=== PATIENT | female | born 1970 | race Hispanic/Latino ===

== ENCOUNTER 2020-08-15 13:40 | Emergency (ER) | payer BC ==
--- NOTE | 2020-08-15 16:02 | ER ---
Nurse's Notes [facility] Name: Angela Strong Age: 49 yrs Sex: Female : 1970 Arrival Date: 08/15/2020 Time: 13:41 Bed 23 Private MD: Diagnosis: Fall on same level from slipping, tripping and stumbling;Pain in right foot;Pain in right hip;Pain in right shoulder;Pain in right leg Presentation: 08/15 13:55 Chief complaint: Patient states: Fell 5 nights ago. Fell onto R side . R foot pain ll1 since. Wants R hip/R knee/R shoulder checked also. accidentally hit R toe 2 days ago, re-injured it. PMS intact. Coronavirus screen: Client denies travel out of the [place] in the last 14 days. At this time, the client does not indicate any symptoms associated with coronavirus-19. Ebola Screen: Patient denies travel to an Ebola-affected area in the 21 days before illness onset. Initial Sepsis Screen: Does the patient meet any 2 criteria? HR > 90 bpm. No. Patient's initial sepsis screen is negative. Does the patient have a suspected source of infection? Yes: Bone or joint infection. Risk Assessment: Do you want to hurt yourself or someone else? Patient reports no desire to harm self or others. Onset of symptoms was August 10, 2020. 13:55 Method Of Arrival: Wheelchair ll1 13:55 Acuity: KIRTI 3 ll1 Triage Assessment: 14:02 General: Appears in no apparent distress. Behavior is calm, cooperative, appropriate ll1 for age. Pain: Complains of pain in R foot Pain currently is 9 out of 10 on a pain scale. Quality of pain is described as aching. Musculoskeletal: Circulation, motion, and sensation intact. Capillary refill < 3 seconds, Tenderness present in R great toe Reports pain in R shoulder/R hip/R knee/R foot. Historical: - Allergies: 14:00 No Known Allergies; ll1 - PMHx: 14:00 Hypertension; Anxiety; ll1 - PSHx: 14:00 Breast biopsy; ll1 - Immunization history:: Flu vaccine is not up to date. - Social history:: Smoking status: Patient denies any tobacco usage or history of. Screenin:28 Abuse screen: Denies threats or abuse. Nutritional screening: No deficits noted. vg1 Tuberculosis screening: No symptoms or risk factors identified. Fall Risk Fall in past 12 months (25 points). No secondary diagnosis (0 pts). No IV (0 pts). Ambulatory Aid- None/Bed Rest/Nurse Assist (0 pts). Gait- Normal/Bed Rest/Wheelchair (0 pts) Mental Status- Oriented to own ability (0 pts). Total Soriano Fall Scale indicates Low Risk Score (25-44 pts). Fall prevention measures have been instituted. Side Rails Up X 2 Placed close to Nursing Station. Assessment: 18:15 General: Appears in no apparent distress. comfortable, Behavior is calm, cooperative. vg1 Pain: Complains of pain in right foot,hip, knee, shoulder. Pain currently is 7 out of 10 on a pain scale. Neuro: Level of Consciousness is awake, alert, obeys commands, Oriented to person, place, time, situation. Cardiovascular: Patient's skin is warm and dry. Respiratory: Airway is patent Respiratory effort is even, unlabored. GI: No signs and/or symptoms were reported involving the gastrointestinal system. : No signs and/or symptoms were reported regarding the genitourinary system. EENT: No signs and/or symptoms were reported regarding the EENT system. Derm: Skin is intact, is healthy with good turgor. Musculoskeletal: Range of motion: limited in right toes. Vital Signs: 13:55 BP 188 / 114; Pulse 95; Resp 17; Temp 97.6; Pulse Ox 95% on R/A; Pain 9/10; ll1 18:28 BP 164 / 84; Pulse 98; Resp 16; Pulse Ox 98% on R/A; vg1 ED Course: 13:41 Patient arrived in ED. ds1 13:58 Triage completed. ll1 14:01 Arm band placed on. ll1 16:02 not in lobby or restroom when called to ER bed. ll1 17:17 Jason Lopez PA is PHCP. cp 17:17 Micha Butler MD is Attending Physician. cp 17:26 Amy Keane, TONY is Primary Nurse. vg1 17:41 Patient moved to radiology via stretcher. vg1 18:28 Patient has correct armband on for positive identification. Bed in low position. Call vg1 light in reach. Side rails up X2. 19:22 No provider procedures requiring assistance completed. Patient did not have IV access vg1 during this emergency room visit. Administered Medications: 18:23 Drug: Hydrocodone-Acetaminophen (7.5 mg-325 mg) 1 tabs {Note: rass0.} Route: PO; vg1 19:32 Follow up: Response: No adverse reaction; Pain is decreased vg1 Outcome: 18:54 Discharge ordered by . cp 19:22 Discharged to home via wheelchair. vg1 19:22 Condition: stable 19:22 Discharge instructions given to patient, Instructed on discharge instructions, follow up and referral plans. medication usage, Demonstrated understanding of instructions, follow-up care, medications, Prescriptions given X 2. 19:22 Patient left the ED. vg1 Signatures: Brooklynn Renteria ds1 Jason Lopez PA PA cp Garcia, Victoria, RN RN vg1 Flores Euceda RN RN ll1 Corrections: (The following items were deleted from the chart) 14:02 13:55 Chief complaint: Patient states: Fell 5 nights ago. Fell onto R side . R foot ll1 pain since. Wants R hip/R knee/R shoulder checked also. ll1 17:08 16:02 Patient left the ED. ll1 ll1
[2020-08-15 16:50] VITALS: TEMP 97.6
--- NOTE | 2020-08-15 18:04 | RAD REPORT ---
EXAM DESCRIPTION: RAD - Foot Right 3 View - 08/15/2020 5:55 pm CLINICAL HISTORY: PAIN Trauma, fall, pain COMPARISON: No comparisons FINDINGS: Mild soft tissue swelling is evident. No acute fracture or dislocation seen. Small plantar calcaneal spur.
--- NOTE | 2020-08-15 18:07 | RAD REPORT ---
EXAM DESCRIPTION: RAD - Tib Fib Right - 08/15/2020 5:56 pm CLINICAL HISTORY: PAIN Fall, trauma, pain COMPARISON: No comparisons FINDINGS: Mild arthritic changes are present involving the medial joint compartment. Soft tissue swe lling is seen laterally along the lateral malleolus. No evidence of acute fracture or joint effusion.
--- NOTE | 2020-08-15 18:08 | RAD REPORT ---
EXAM DESCRIPTION: RAD - Femur Right - 08/15/2020 5:55 pm CLINICAL HISTORY: PAIN COMPARISON: No comparisons FINDINGS: Mild arthritic changes involve the right hip. No acute fracture or dislocation is seen.
--- NOTE | 2020-08-15 18:11 | RAD REPORT ---
EXAM DESCRIPTION: RAD - Shoulder Right 2 View - 08/15/2020 5:56 pm CLINICAL HISTORY: PAIN COMPARISON: No comparisons FINDINGS: Mild calcific tendinitis is present. No acute fracture or dislocation.
[2020-08-15] MEDS ORDERED: HYDROCODONE/APAP 7.5/325 MG TAB ONE (18:33)
--- NOTE | 2020-08-15 18:55 | EDPHYS ---
Physician Documentation [facility] Name: Angela Strong Age: 49 yrs Sex: Female : 1970 Arrival Date: 08/15/2020 Time: 13:41 Bed 23 Private MD: ED Physician Micha Butler HPI: 08/15 17:30 This 49 yrs old Female presents to ER via Wheelchair with complaints of Fall cp Injury, Foot Injury. 17:30 Details of fall: The patient fell from an upright position, while walking. cp 17:30 Onset: The symptoms/episode began/occurred 5 day(s) ago. cp 17:30 Associated injuries: The patient sustained right shoulder, painful injury, right foot, cp painful injury, right hip, painful injury, right lower leg, painful injury. Historical: - Allergies: 14:00 No Known Allergies; ll1 - PMHx: 14:00 Hypertension; Anxiety; ll1 - PSHx: 14:00 Breast biopsy; ll1 - Immunization history:: Flu vaccine is not up to date. - Social history:: Smoking status: Patient denies any tobacco usage or history of. ROS: 17:35 Eyes: Negative for injury, pain, redness, and discharge. cp 17:35 Constitutional: Negative for body aches, chills, fever. 17:35 Neck: Negative for pain with movement, pain at rest, stiffness. 17:35 Cardiovascular: Negative for chest pain. 17:35 Respiratory: Negative for cough, shortness of breath, wheezing. 17:35 Abdomen/GI: Negative for abdominal pain, nausea, vomiting, and diarrhea. 17:35 Back: Negative for pain at rest, pain with movement. 17:35 MS/extremity: Positive for pain, of the right foot and right shoulder and right hip and right lower leg, Negative for deformity, paresthesias. 17:35 Neuro: Negative for altered mental status, dizziness, loss of consciousness, weakness. 17:35 All other systems are negative. Exam: 17:45 Constitutional: The patient appears in no acute distress, alert, awake, non-toxic, well cp developed, well nourished, obese. 17:45 Head/Face: Normocephalic, atraumatic. cp 17:45 Neck: ROM/movement: is normal, is supple, without pain, no range of motions limitations. 17:45 Chest/axilla: Inspection: normal. 17:45 Cardiovascular: Rate: normal, Rhythm: regular. 17:45 Respiratory: the patient does not display signs of respiratory distress, Respirations: normal, no use of accessory muscles, labored breathing, is not present. 17:45 Abdomen/GI: Inspection: abdomen appears normal, Palpation: abdomen is soft and non-tender, in all quadrants. 17:45 Back: pain, is absent, ROM is normal, vertebral tenderness, is not appreciated. 17:45 Musculoskeletal/extremity: Extremities: grossly normal except: noted in the right shoulder: pain, noted in the right hip: pain, noted in the right lower leg: pain, Noted in right foot: pain, tenderness, great toe with mild swelling. 17:45 Skin: cellulitis, is not appreciated, no rash present. 17:45 Neuro: Orientation: to person, place \T\ time. Mentation: is normal. Vital Signs: 13:55 BP 188 / 114; Pulse 95; Resp 17; Temp 97.6; Pulse Ox 95% on R/A; Pain 9/10; ll1 18:28 BP 164 / 84; Pulse 98; Resp 16; Pulse Ox 98% on R/A; vg1 MDM: 17:20 Patient medically screened. cp 18:00 Differential diagnosis: contusion, fracture, multiple trauma. cp 18:53 Data reviewed: vital signs, nurses notes, radiologic studies, plain films. cp 18:53 Counseling: I had a detailed discussion with the patient and/or guardian regarding: the cp historical points, exam findings, and any diagnostic results supporting the discharge/admit diagnosis, radiology results, to return to the emergency department if symptoms worsen or persist or if there are any questions or concerns that arise at home. Response to treatment: the patient's symptoms have markedly improved after treatment, VSS. Radiology studies negative for fracture. Will discharge to home for continued monitoring. 08/15 17:28 Order name: Foot Right 3 View XRAY cp 08/15 17:28 Order name: XRAY Femur RIGHT cp 08/15 17:28 Order name: XRAY Tib Fib RIGHT cp 08/15 17:28 Order name: XRAY Shoulder RIGHT 2 view cp 08/15 18:06 Order name: RAD EDMS 08/15 18:08 Order name: RAD EDMS 01/21 18:10 Order name: RAD EDMS 08/15 18:12 Order name: [facility] 08/15 18:51 Order name: Walking boot; Complete Time: 19:21 cp Administered Medications: 18:23 Drug: Hydrocodone-Acetaminophen (7.5 mg-325 mg) 1 tabs {Note: rass0.} Route: PO; vg1 19:32 Follow up: Response: No adverse reaction; Pain is decreased vg1 Disposition: 08/15/20 18:54 Discharged to Home. Impression: Fall on same level from slipping, tripping and stumbling, Pain in right foot, Pain in right hip, Pain in right shoulder, Pain in right leg. - Condition is Stable. - Discharge Instructions: Shoulder Pain, Shoulder Range of Motion Exercises, Hip Pain, Foot Pain. - Prescriptions for Naprosyn 500 mg Oral Tablet - take 1 tablet by ORAL route 2 times per day take with food; 20 tablet. Cyclobenzaprine 10 mg Oral Tablet - take 1 tablet by ORAL route every 8 hours As needed; 20 tablet. - Medication Reconciliation Form, Thank You Letter, Antibiotic Education, Prescription Opioid Use form. - Follow up: Private Physician; When: 2 - 3 days; Reason: Recheck today's complaints. - Problem is new. - Symptoms have improved. Addendum: 08/19/2020 06:23 Co-signature as Attending Physician, Micha Butler MD I agree with the assessment and t w4 plan of care. Signatures: Dispatcher [employer] [facility] Jason Lopez PA PA cp Wadley, Terrence, MD MD tw4 Amy Keane RN RN vg1 Flores Euceda RN RN ll1 Corrections: (The following items were deleted from the chart) 08/15 17:13 16:02 08/15/2020 16:02 Patient left the facility post triage evaluation and consult. bd Reason stated they are leaving due to wait time. ll1 19: 18:51 Crutches ordered. cp vg1 19:22 18:54 08/15/2020 18:54 Discharged to Home. Impression: Fall on same level from vg1 slipping, tripping and stumbling; Pain in right foot; Pain in right hip; Pain in right shoulder; Pain in right leg. Condition is Stable. Forms are Medication Reconciliation Form, Thank You Letter, Antibiotic Education, Prescription Opioid Use. Follow up: Private Physician; When: 2 - 3 days; Reason: Recheck today's complaints. Problem is new. Symptoms have improved. cp
[2020-08-15 19:27] VITALS: BP 164/84; O2SAT 98
== END 2020-08-15 19:22 | disposition home or self-care (01) ==
LOC: ER 13:40
DX: M25.551 Pain in right hip (principal); M25.511 Pain in right shoulder; M79.604 Pain in right leg; W01.0XXA Fall on same level from slipping, tripping and stumbling without subsequent striking against object, initial encounter; Y93.01 Activity, walking, marching and hiking; Y92.9 Unspecified place or not applicable; I10 Essential (primary) hypertension
CPT/HCPCS: 99283